=== PATIENT | male | born 1990 | race Caucasian/White ===

== ENCOUNTER 2016-05-11 17:23 | Emergency (ER) | payer OTHER ==
[2016-05-11 17:30] VITALS: RESP 18; TEMP 98.1
--- NOTE | 2016-05-11 18:55 | ED ---
Extremity Problem HPI - General Chief complaint: Extremity Problem,Nontraumatic Stated complaint: leg pain Time Seen by Provider: 05/11/16 18:35 Source: patient, RN notes reviewed Mode of arrival: ambulatory - History of Present Illness Initial comments: Patient is a 26-year-old male presenting to the with chief complaint of right calf pain for approximately 1 day. He states that he does sit frequently and drives often. Patient reports that he googled his symptoms and is concerned that he has a blood clot. He denies any redness to the leg denies any increased swelling to the leg. She states that it is worse with ambulation and he wants to rule out a blood clot. Patient denies any history of blood clots, cancer, blood disorders.Patient denies any recent fever, chills, shortness of breath, chest pain, back pain, abdominal pain, nausea vomiting, numbness or tingling, dysuria or hematuria, constipation or diarrhea, headaches or visual changes, or any other current symptoms - Related Data Home Medications Medication Instructions Recorded Confirmed Ketoconazole [Ketoconazole] 1 applic TOPICAL DAILY PRN 12/13/15 12/13/15 Omeprazole 20 mg PO DAILY PRN 12/13/15 12/13/15 Previous Rx's Medication Instructions Recorded Sulfamethoxazole/Trimethoprim 1 tab PO Q12H 7 Days 12/13/15 [Bactrim DS 800-160 mg] Naproxen 500 mg PO Q12HR #20 tab 05/11/16 Allergies Allergy/AdvReac Type Severity Reaction Status Date / Time bupropion HCl AdvReac Nausea & Verified 05/11/16 17:29 [From Wellbutrin] Vomiting citalopram hydrobromide AdvReac Insomnia Verified 05/11/16 17:29 [From Celexa] sertraline HCl [From Zoloft] AdvReac Insomnia Verified 05/11/16 17:29 Review of Systems ROS Statement: Those systems with pertinent positive or pertinent negative responses have been documented in the HPI. ROS Other: All systems not noted in ROS Statement are negative. Past Medical History Past Medical History: No Reported History Additional Past Medical History / Comment(s): cyst on tailbone x 3 History of Any Multi-Drug Resistant Organisms: None Reported Past Surgical History: No Surgical Hx Reported Additional Past Surgical History / Comment(s): mole removal Past Psychological History: ADD/ADHD, Anxiety, Depression Smoking Status: Current every day smoker Past Alcohol Use History: None Reported Past Drug Use History: None Reported General Exam - General Exam Comments Initial Comments: Is a pleasant 26-year-old male. He does not appear to be in any acute distress. General appearance: alert, in no apparent distress Head exam: Present: atraumatic, normocephalic, normal inspection Eye exam: Present: normal appearance ENT exam: Present: normal exam, mucous membranes moist Neck exam: Present: normal inspection. Absent: tenderness, meningismus, lymphadenopathy Respiratory exam: Present: normal lung sounds bilaterally. Absent: respiratory distress, wheezes, rales, rhonchi, stridor Cardiovascular Exam: Present: regular rate, normal rhythm, normal heart sounds. Absent: systolic murmur, diastolic murmur, rubs, gallop, clicks GI/Abdominal exam: Present: soft, normal bowel sounds. Absent: distended, tenderness, guarding, rebound, rigid Extremities exam: Present: normal inspection, full ROM, normal capillary refill. Absent: tenderness, pedal edema, joint swelling, calf tenderness Right Upper Leg exam: Present: normal inspection, full ROM Knee exam: Present: normal inspection, full ROM Lower Leg exam: Present: normal inspection, full ROM Ankle exam: Present: normal inspection, full ROM Foot/Toe exam: Present: normal inspection, full ROM Neurovascular tendon exam: Present: no vascular compromise Gait: observed and normal Back exam: Present: normal inspection Neurological exam: Present: alert, oriented X3, CN II-XII intact Psychiatric exam: Present: normal affect, normal mood Skin exam: Present: warm, dry, intact, normal color. Absent: rash Course Vital Signs 05/11/16 05/11/16 17:27 19:36 Temperature 98.1 F Pulse Rate 99 89 Respiratory 18 18 Rate Blood Pressure 144/84 150/94 O2 Sat by Pulse 99 96 Oximetry Medical Decision Making - Medical Decision Making Patient is a 26-year-old male with a chief complaint of right calf pain for approximately 1 day. Rate leg lower extremity Doppler ultrasound was obtained and negative for DVT. Patient reports that is tender to palpation over the gastrocnemius. Patient will be diagnosed with a muscle strain at this time. Patient redness occur rash to the leg. I advised patient to take anti- inflammatory medications as prescribed and to follow-up with primary care physician of symptoms into to persist. Return parameters were discussed. - Radiology Data Radiology results: report reviewed Doppler ultrasound of right lower extremities negative for DVT. Disposition Clinical Impression: Leg pain Disposition: HOME SELF-CARE Condition: Good Instructions: Leg Pain (ED) Additional Instructions: Patient instructed to rest, ice, and elevate extremity. Patient instructed to follow-up with her primary care provider if symptoms continue to persist. Return to the [facility] if any alarming signs or symptoms occur. Prescriptions: Naproxen 500 mg PO Q12HR #20 tab Referrals: Joseph Zepeda DO [Primary Care Provider] - 1-2 days Time of Disposition: 19:29
[2016-05-11 19:36] VITALS: BP 150/94; PULSE 89
--- NOTE | 2016-05-11 19:45 | US ---
EXAMINATION TYPE: US venous doppler duplex LE LT DATE OF EXAM: 05/11/2016 6:35 PM COMPARISON: NONE CLINICAL HISTORY: [facility] Patient with Right calf pain x 2 days. Patient denies leg swelling. SIDE PERFORMED: VESSELS IMAGED: Common Femoral Vein Deep Femoral Vein Greater Saphenous Vein * Femoral Vein Popliteal Vein Small Saphenous Vein * Proximal Calf Veins (* superficial vessels) TECHNOLOGIST IMPRESSION: Right Leg: Negative for DVT IMPRESSION: Normal exam. No evidence of deep venous thrombosis in the right leg. Normal augmentation .
== END 2016-05-11 19:36 | disposition home or self-care (01) ==
LOC: EC 17:23
DX: M79.604 Pain in right leg (principal); Z88.8 Allergy status to other drugs, medicaments and biological substances; F17.200 Nicotine dependence, unspecified, uncomplicated
CPT/HCPCS: 99283

== ENCOUNTER 2016-08-07 12:57 | Emergency (ER) | payer OTHER ==
[2016-08-07 13:28] VITALS: BP 135/84; PULSE 103; RESP 20; TEMP 98.2
--- NOTE | 2016-08-07 14:51 | ED ---
Back Pain HPI - General Chief Complaint: Back Pain/Injury Stated Complaint: Lower Back Pain/Injury Time Seen by Provider: 08/07/16 14:25 Source: patient Limitations: no limitations - History of Present Illness Initial Comments: Patient is a 26-year-old male presents emergency room for evaluation of low back pain. Patient states about a week ago he was lifting up a large piece of plywood in threw out his back. Patient states been having pain on the left side of his lower back. Patient denies pain radiating. Patient denies saddle anesthesia. Patient denies fecal or urinary incontinence. Patient denies any numbness or tingling going down his legs. Patient states that he followed-up with his primary care provider after the incident and was sent home with muscle relaxers. Patient states he has been taken muscle relaxers before bed and ibuprofen during the day with relief of symptoms. Patient states that his pain has improved since the initial incident. Patient states he is now able to stand up straight, when he couldn't a week ago. Patient states he thought he should come to the emergency room to be reevaluated. Patient's chest pain, shortness of breath, trouble walking, fevers, chills, headache, dizziness. - Related Data Home Medications Medication Instructions Recorded Confirmed Desvenlafaxine Succinate [Pristiq] 1 tab PO DAILY 08/07/16 08/07/16 Allergies Allergy/AdvReac Type Severity Reaction Status Date / Time bupropion HCl AdvReac Nausea & Verified 08/07/16 13:28 [From Wellbutrin] Vomiting citalopram hydrobromide AdvReac Insomnia Verified 08/07/16 13:28 [From Celexa] sertraline HCl [From Zoloft] AdvReac Insomnia Verified 08/07/16 13:28 Review of Systems ROS Statement: Those systems with pertinent positive or pertinent negative responses have been documented in the HPI. ROS Other: All systems not noted in ROS Statement are negative. Past Medical History Past Medical History: No Reported History Additional Past Medical History / Comment(s): cyst on tailbone x 3 History of Any Multi-Drug Resistant Organisms: None Reported Past Surgical History: No Surgical Hx Reported Additional Past Surgical History / Comment(s): mole removal Past Psychological History: ADD/ADHD, Anxiety, Depression Smoking Status: Current every day smoker Past Alcohol Use History: None Reported Past Drug Use History: None Reported General Exam - General Exam Comments Initial Comments: Sitting in exam room, no acute distress. Limitations: no limitations General appearance: alert, in no apparent distress Head exam: Present: atraumatic, normocephalic, normal inspection Eye exam: Present: normal appearance ENT exam: Present: normal exam Neck exam: Present: normal inspection Respiratory exam: Absent: respiratory distress Extremities exam: Present: normal inspection Back exam: Present: normal inspection, full ROM, muscle spasm (Left lower lumbosacral spine), paraspinal tenderness (Left lumbosacral spine tenderness). Absent: CVA tenderness (R), CVA tenderness (L), vertebral tenderness Neurological exam: Present: alert, oriented X3, CN II-XII intact, normal gait Psychiatric exam: Present: normal affect, normal mood Skin exam: Present: warm, dry, intact, normal color. Absent: rash Course Vital Signs 08/07/16 13:25 Temperature 98.2 F Pulse Rate 103 H Respiratory 20 Rate Blood Pressure 135/84 O2 Sat by Pulse 98 Oximetry Medical Decision Making - Medical Decision Making Patient is a 26-year-old male presents to the emergency room for evaluation of acute low back pain. Patient states the symptoms have improved since they began a week ago. Patient states he came here to be double checked. I did offer patient x-ray and patient declined at this time. Patient declined any pain medications while he was here. Patient states he'll continue taking ibuprofen and muscle relaxers that was prescribed to him by his primary care provider. Advised patient to return for any worsening or concerning symptoms. Patient states he understands everything that was discussed with him. Case discussed with Dr. Pacheco. Disposition Clinical Impression: Acute low back pain Disposition: HOME SELF-CARE Condition: Good Instructions: Acute Low Back Pain (ED) Additional Instructions: Alternate ice and heat. Continue taking ibuprofen or Aleve as needed for pain. Please follow up with primary care provider in 1-2 days. If any new symptom arises or symptoms worsen, return to ER as soon as possible. Referrals: Joseph Zepeda DO [Primary Care Provider] - 1-2 days Time of Disposition: 14:50
== END 2016-08-07 15:02 | disposition home or self-care (01) ==
LOC: EC 12:57
DX: M62.838 Other muscle spasm (principal); F41.9 Anxiety disorder, unspecified; F32.9 Major depressive disorder, single episode, unspecified; F17.200 Nicotine dependence, unspecified, uncomplicated; Z79.899 Other long term (current) drug therapy; Z88.8 Allergy status to other drugs, medicaments and biological substances
CPT/HCPCS: 99283

== ENCOUNTER 2016-09-10 17:57 | Emergency (ER) | payer OTHER ==
[2016-09-10 18:37] VITALS: BP 134/87; PULSE 94; RESP 16; TEMP 98.2
--- NOTE | 2016-09-10 18:46 | ED ---
Extremity Problem HPI - General Chief complaint: Extremity Problem,Nontraumatic Stated complaint: finger pain Time Seen by Provider: 09/10/16 18:28 Source: patient, RN notes reviewed Mode of arrival: ambulatory Limitations: no limitations - History of Present Illness Initial comments: 26-year-old male present emergency department for right hand fourth digit shooting pain. Patient's pain has been intermittent and seems calm ago. Patient states it is worse when he has his arm in a flexed position for long period time. He states his only on the medial aspect of his fourth digit. Patient states is sharp shooting type pain and then it seemed to subside. He states nothing seems to make it feel better at the time when it is present. Patient denies any trauma. 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 Patient denies any chest pain first breath. Patient denies any neck pain or any upper arm pain this time. Patient was adjusted by his chiropractor recently. - Related Data Home Medications Medication Instructions Recorded Confirmed Desvenlafaxine Succinate [Pristiq] 1 tab PO DAILY 08/07/16 09/10/16 Previous Rx's Medication Instructions Recorded methylPREDNISolone [Medrol Dose 4 mg PO DIRECTED #1 pack 09/10/16 Pack] Allergies Allergy/AdvReac Type Severity Reaction Status Date / Time bupropion HCl AdvReac Nausea & Verified 09/10/16 18:37 [From Wellbutrin] Vomiting citalopram hydrobromide AdvReac Insomnia Verified 09/10/16 18:37 [From Celexa] sertraline HCl [From Zoloft] AdvReac Insomnia Verified 09/10/16 18:37 Review of Systems ROS Statement: Those systems with pertinent positive or pertinent negative responses have been documented in the HPI. ROS Other: All systems not noted in ROS Statement are negative. Past Medical History Past Medical History: No Reported History Additional Past Medical History / Comment(s): cyst on tailbone x 3 History of Any Multi-Drug Resistant Organisms: None Reported Past Surgical History: No Surgical Hx Reported Additional Past Surgical History / Comment(s): mole removal, teeth extraction Past Psychological History: ADD/ADHD, Anxiety, Depression Smoking Status: Current every day smoker Past Alcohol Use History: None Reported Past Drug Use History: None Reported General Exam Limitations: no limitations General appearance: alert, in no apparent distress ENT exam: Present: normal exam, normal oropharynx Neck exam: Present: normal inspection. Absent: tenderness, meningismus, lymphadenopathy Respiratory exam: Present: normal lung sounds bilaterally. Absent: respiratory distress, wheezes, rales, rhonchi, stridor Cardiovascular Exam: Present: regular rate, normal rhythm, normal heart sounds. Absent: systolic murmur, diastolic murmur, rubs, gallop, clicks Extremities exam: Present: other (Right hand full-strength neurovascular intact negative Tinel's and Phalen's Refill less than 2 seconds) Neurological exam: Present: reflexes normal. Absent: motor sensory deficit Skin exam: Present: warm, dry, intact, normal color. Absent: rash Course Vital Signs 09/10/16 18:34 Temperature 98.2 F Pulse Rate 94 Respiratory 16 Rate Blood Pressure 134/87 O2 Sat by Pulse 100 Oximetry Medical Decision Making - Medical Decision Making 26year old w presents for intermittent pain to his right hand fourth digit. Patient is exhibiting radicular pain related to his ulnar groove. Patient most likely has cubital syndrome. Patient was started on Medrol Dosepak at this time. Patient will follow up with her still if no improvement. Patient may need EMG. Disposition Clinical Impression: Ulnar nerve entrapment at right ulnar grove, Radicular pain of right upper extremity Disposition: HOME SELF-CARE Condition: Stable Instructions: Cubital Tunnel Syndrome (ED) Additional Instructions: Please return to the Emergency Department if symptoms worsen or any other concerns. Prescriptions: methylPREDNISolone [Medrol Dose Pack] 4 mg PO DIRECTED #1 pack Referrals: Joseph Zepeda DO [Primary Care Provider] - 1-2 days Garo Sterling MD [STAFF PHYSICIAN] - 1-2 days Time of Disposition: 18:46
== END 2016-09-10 19:10 | disposition home or self-care (01) ==
LOC: EC 17:57
DX: G56.21 Lesion of ulnar nerve, right upper limb (principal); F32.9 Major depressive disorder, single episode, unspecified; F17.200 Nicotine dependence, unspecified, uncomplicated; Z79.899 Other long term (current) drug therapy; Z88.8 Allergy status to other drugs, medicaments and biological substances
CPT/HCPCS: 99283

== ENCOUNTER 2016-09-22 12:25 | Emergency (ER) | payer OTHER ==
[2016-09-22 12:28] VITALS: BP 129/86; PULSE 100; RESP 18; TEMP 98.8
[2016-09-22] MEDS ORDERED: ONDANSETRON 4 MG ODT STARTER PACK 2 TAB BTL PO STA (13:08)
--- NOTE | 2016-09-22 13:12 | ED ---
General Adult HPI - General Chief complaint: Recheck/Abnormal Lab/Rx Stated complaint: Weakness Time Seen by Provider: 09/22/16 12:51 Source: patient, RN notes reviewed Mode of arrival: ambulatory Limitations: no limitations - History of Present Illness Initial comments: Patient 26-year-old male who presents emergency room today with chief complaint of symptoms of nausea with diarrhea over the last 3 days. He does admit that his appetites been decreased. He states that at times she's felt dizzy little lightheaded. States he's worried that is possibly dehydrated. States the symptoms have been improved. he denies any other complaints. States he does not have any blood work or IV placed. States he does have anxiety and felt like he does need to come to the emergency room to have an official diagnosis. Patient denies any recent fever, chills, shortness of breath, chest pain, back pain, abdominal pain, nausea or vomiting, numbness or tingling, dysuria or hematuria, constipation, headaches or visual changes, or any other complaints. - Related Data Home Medications Medication Instructions Recorded Confirmed Omeprazole 20 mg PO DAILY 09/22/16 09/22/16 Previous Rx's Medication Instructions Recorded Ondansetron Odt [Zofran ODT] 4 mg PO Q8HR PRN #10 tab 09/22/16 Allergies Allergy/AdvReac Type Severity Reaction Status Date / Time bupropion HCl AdvReac Nausea & Verified 09/10/16 18:37 [From Wellbutrin] Vomiting citalopram hydrobromide AdvReac Insomnia Verified 09/10/16 18:37 [From Celexa] sertraline HCl [From Zoloft] AdvReac Insomnia Verified 09/10/16 18:37 Review of Systems ROS Statement: Those systems with pertinent positive or pertinent negative responses have been documented in the HPI. ROS Other: All systems not noted in ROS Statement are negative. Past Medical History Past Medical History: No Reported History Additional Past Medical History / Comment(s): cyst on tailbone x 3 History of Any Multi-Drug Resistant Organisms: None Reported Past Surgical History: No Surgical Hx Reported Additional Past Surgical History / Comment(s): mole removal, teeth extraction Past Psychological History: ADD/ADHD, Anxiety, Depression Smoking Status: Current every day smoker Past Alcohol Use History: None Reported Past Drug Use History: None Reported General Exam - General Exam Comments Initial Comments: General: The patient is awake and alert, in no distress, and does not appear acutely ill. Eye: Pupils are equal, round and reactive to light, extra-ocular movements are intact. No nystagmus. There is normal conjunctiva bilaterally. No signs of icterus. Ears, nose, mouth and throat: There are moist mucous membranes and no oral lesions. Neck: The neck is supple, there is no tenderness or JVD. Cardiovascular: There is a regular rate and rhythm. No murmur, rub or gallop is appreciated. Respiratory: Lungs are clear to auscultation, respirations are non-labored, breath sounds are equal. No wheezes, stridor, rales, or rhonchi. Gastrointestinal: Soft, non-distended, non-tender abdomen without masses or organomegaly noted. There is no rebound or guarding present. No CVA tenderness. Bowel sounds are unremarkable. Musculoskeletal: Normal ROM, no tenderness. Strength 5/5. Sensation intact. Pulses equal bilaterally 2+. Neurological: A&O x 3. CN II-XII intact, There are no obvious motor or sensory deficits. Coordination appears grossly intact. Speech is normal. Skin: Skin is warm and dry and no rashes or lesions are noted. Psychiatric: Cooperative, appropriate mood & affect, normal judgment. Limitations: no limitations Course Vital Signs 09/22/16 12:25 Temperature 98.8 F Pulse Rate 100 Respiratory 18 Rate Blood Pressure 129/86 O2 Sat by Pulse 100 Oximetry Medical Decision Making - Medical Decision Making patient's declined any testing here in the emergency room. patient will be treated with Zofran. Advised if symptoms increase or worsen to return. Disposition Clinical Impression: Nausea without vomiting, Acute diarrhea Disposition: HOME SELF-CARE Condition: Good Instructions: Acute Diarrhea (ED) Additional Instructions: Please use medication as discussed. Please follow-up with family doctor in the next 2 days of symptoms have not improved. Please return to emergency room if the symptoms increase or worsen or for any other concerns. Prescriptions: Ondansetron Odt [Zofran ODT] 4 mg PO Q8HR PRN #10 tab PRN Reason: Nausea Referrals: Joseph Zepeda DO [Primary Care Provider] - 1-2 days Time of Disposition: 13:11
== END 2016-09-22 13:29 | disposition home or self-care (01) ==
LOC: EC 12:25
DX: R19.7 Diarrhea, unspecified (principal); R11.0 Nausea; R42 Dizziness and giddiness; R53.1 Weakness; F17.200 Nicotine dependence, unspecified, uncomplicated; Z79.899 Other long term (current) drug therapy; Z88.8 Allergy status to other drugs, medicaments and biological substances
CPT/HCPCS: 99284; S0119

== ENCOUNTER 2016-09-23 11:01 | Emergency (ER) | payer OTHER ==
[2016-09-23 11:20] VITALS: BP 151/94; PULSE 98; RESP 16; TEMP 98.2
[2016-09-23] MEDS ORDERED: ONDANSETRON 4 MG ODT STARTER PACK 2 TAB BTL PO STA (11:36)
--- NOTE | 2016-09-23 11:39 | ED ---
General Adult HPI - General Chief complaint: Nausea/Vomiting/Diarrhea Stated complaint: FLU LIKE SYMPTOMS Time Seen by Provider: 09/23/16 11:27 Source: patient, RN notes reviewed Mode of arrival: ambulatory Limitations: no limitations - History of Present Illness Initial comments: Patient is a 26-year-old male who presents emergency room today with chief complaint of symptoms of nausea vomiting diarrhea. Patient was seen here in the emergency room by myself yesterday for the same complaint. Patient was advised to use Zofran was given a starter pack of Zofran to go home with. States he forgot all about this and went home and fell asleep. States he did not take any of Zofran did not get the prescription filled. States he forgot about until I mentioned at this time. Patient does admit that he did have an episode of vomiting. He denies abdominal pain. States not had any diarrhea today. States he is concerned thought symptoms were getting worse. He denies any other complaints or symptoms at this time. Does admit that overall over the last 4-5 days symptoms seem to be somewhat improving. Patient denies any recent fever, chills, shortness of breath, chest pain, back pain, numbness or tingling, dysuria or hematuria, constipation, headaches or visual changes, or any other complaints. - Related Data Home Medications Medication Instructions Recorded Confirmed Omeprazole 20 mg PO DAILY 09/22/16 09/22/16 Allergies Allergy/AdvReac Type Severity Reaction Status Date / Time bupropion HCl AdvReac Nausea & Verified 09/23/16 11:16 [From Wellbutrin] Vomiting citalopram hydrobromide AdvReac Insomnia Verified 09/23/16 11:16 [From Celexa] sertraline HCl [From Zoloft] AdvReac Insomnia Verified 09/23/16 11:16 Review of Systems ROS Statement: Those systems with pertinent positive or pertinent negative responses have been documented in the HPI. ROS Other: All systems not noted in ROS Statement are negative. Past Medical History Past Medical History: No Reported History Additional Past Medical History / Comment(s): cyst on tailbone x 3 History of Any Multi-Drug Resistant Organisms: None Reported Past Surgical History: No Surgical Hx Reported Additional Past Surgical History / Comment(s): mole removal, teeth extraction Past Psychological History: ADD/ADHD, Anxiety, Depression Smoking Status: Current every day smoker Past Alcohol Use History: None Reported Past Drug Use History: None Reported General Exam - General Exam Comments Initial Comments: General: The patient is awake and alert, in no distress, and does not appear acutely ill. Eye: Pupils are equal, round and reactive to light, extra-ocular movements are intact. No nystagmus. There is normal conjunctiva bilaterally. No signs of icterus. Ears, nose, mouth and throat: There are moist mucous membranes and no oral lesions. Neck: The neck is supple, there is no tenderness or JVD. Cardiovascular: There is a regular rate and rhythm. No murmur, rub or gallop is appreciated. Respiratory: Lungs are clear to auscultation, respirations are non-labored, breath sounds are equal. No wheezes, stridor, rales, or rhonchi. Gastrointestinal: Soft, non-distended, non-tender abdomen without masses or organomegaly noted. There is no rebound or guarding present. No CVA tenderness. Bowel sounds are unremarkable. Musculoskeletal: Normal ROM, no tenderness. Strength 5/5. Sensation intact. Pulses equal bilaterally 2+. Neurological: A&O x 3. CN II-XII intact, There are no obvious motor or sensory deficits. Coordination appears grossly intact. Speech is normal. Skin: Skin is warm and dry and no rashes or lesions are noted. Psychiatric: Cooperative, appropriate mood & affect, normal judgment. Limitations: no limitations Course Vital Signs 09/23/16 11:17 Temperature 98.2 F Pulse Rate 98 Respiratory 16 Rate Blood Pressure 151/94 O2 Sat by Pulse 97 Oximetry Medical Decision Making - Medical Decision Making Discussed with patient about the importance of taking the nausea medication for symptoms. At this times no signs of dehydration his vitals are stable. There is no abdominal pain his abdomen is soft nontender. Patient will be given a note or starter pack of Zofran to begin using at this time. Advised to use prescription that was given to him yesterday. Advised return if there is any abdominal pain or increase or worsening of symptoms. He states understanding and is in agreement. Disposition Clinical Impression: Nausea vomiting and diarrhea Disposition: HOME SELF-CARE Condition: Good Instructions: Gastroenteritis (ED) Additional Instructions: Please use medication as discussed. Please follow-up with family doctor in the next 2 days of symptoms have not improved. Please return to emergency room if the symptoms increase or worsen or for any other concerns. Referrals: Joseph Zepeda DO [Primary Care Provider] - 1-2 days Time of Disposition: 11:38
== END 2016-09-23 11:46 | disposition home or self-care (01) ==
LOC: EC 11:01
DX: R11.2 Nausea with vomiting, unspecified (principal); R19.7 Diarrhea, unspecified; F17.200 Nicotine dependence, unspecified, uncomplicated; Z79.899 Other long term (current) drug therapy; Z88.8 Allergy status to other drugs, medicaments and biological substances
CPT/HCPCS: 99283; S0119

== ENCOUNTER → 2016-10-01 | Outpatient (CLI) | payer OTHER ==
--- NOTE | 2016-10-01 11:20 | US ---
EXAMINATION TYPE: US abdomen complete DATE OF EXAM: 10/01/2016 COMPARISON: CT abdomen pelvis January 25, 2012. CLINICAL HISTORY: R11.2 NAUSEA WITH VOMITING. EXAM MEASUREMENTS: Liver Length: 14.0 cm Gallbladder Wall: 0.2 cm CBD: 0.5 cm Spleen: 13.9 cm Right Kidney: 12.0 x 4.4 x 5.0 cm Left Kidney: 12.0 x 5.2 x 5.4 cm Pancreas: portions of body and tail obscured by overlying bowel gas, portions visualized wnl Liver: wnl Gallbladder: wnl Evidence for sonographic Sterling's sign: No CBD: wnl Spleen: enlarged Right Kidney: wnl Left Kidney: wnl Upper IVC: wnl Abd Aorta: portions visualized wnl, partially obscured by bowel gas The liver is homogenous. The intrahepatic portion of the IVC and proximal abdominal aorta are within normal limits. There is no evidence of cholelithiasis. Common bile duct is unremarkable. The visu alized portions of the pancreas are homogenous. The spleen is slightly enlarged without suspicious f ocal intrasplenic lesion seen. No worrisome solid or cystic masses seen on saved images of both [facility]. IMPRESSION: Spleen is mildly enlarged and more prominent than seen on CT from 2012. This may warrant further clinical workup. No acute findings are evident.
== END | disposition home or self-care (01) ==
LOC: RADUSWWP 10:18
PROVIDERS: ATTEND Family Medicine
DX: R16.1 Splenomegaly, not elsewhere classified (principal); R11.2 Nausea with vomiting, unspecified
CPT/HCPCS: 76700

== ENCOUNTER 2016-10-11 17:48 | Emergency (ER) | payer OTHER ==
--- NOTE | 2016-10-11 18:53 | ED ---
Lower Extremity Injury HPI - General Chief Complaint: Extremity Injury, Lower Stated Complaint: LEFT LEG PAIN Time Seen by Provider: 10/11/16 18:11 Source: patient, RN notes reviewed Mode of arrival: ambulatory - History of Present Illness Initial Comments: Patient is a 26-year-old male presents to the emergency room for evaluation of left upper leg. Patient states he began experiencing muscle tightness in his left upper leg starting on Saturday. Patient states the pain comes in waves. Patient states he notices when he is active, his left upper thigh begins cramping. Patient denies any specific injury to his leg. Patient denies redness or swelling at the area. Patient is afraid that he has a blood clot. Patient denies history of DVTs. Patient does admit to smoking daily. Patient denies chest pain or shortness of breath. Patient states he has anxiety and wants to make sure it is not a blood clot. Patient denies any numbness or tingling in his toes. Patient denies any current pain right now. Patient denies any low back pain for sciatic pain. - Related Data Home Medications Medication Instructions Recorded Confirmed Omeprazole 20 mg PO DAILY 09/22/16 09/22/16 Previous Rx's Medication Instructions Recorded Orphenadrine [Norflex] 100 mg PO Q12H PRN #12 tablet.er 10/11/16 Allergies Allergy/AdvReac Type Severity Reaction Status Date / Time bupropion HCl AdvReac Nausea & Verified 10/11/16 18:08 [From Wellbutrin] Vomiting citalopram hydrobromide AdvReac Insomnia Verified 10/11/16 18:08 [From Celexa] sertraline HCl [From Zoloft] AdvReac Insomnia Verified 10/11/16 18:08 Review of Systems ROS Statement: Those systems with pertinent positive or pertinent negative responses have been documented in the HPI. ROS Other: All systems not noted in ROS Statement are negative. Past Medical History Past Medical History: No Reported History Additional Past Medical History / Comment(s): cyst on tailbone x 3 History of Any Multi-Drug Resistant Organisms: None Reported Past Surgical History: No Surgical Hx Reported Additional Past Surgical History / Comment(s): mole removal, teeth extraction Past Psychological History: ADD/ADHD, Anxiety, Depression Smoking Status: Current every day smoker Past Alcohol Use History: None Reported Past Drug Use History: None Reported General Exam - General Exam Comments Initial Comments: Sitting in exam room, no acute distress. Limitations: no limitations General appearance: alert, in no apparent distress Head exam: Present: atraumatic, normocephalic, normal inspection Eye exam: Present: normal appearance ENT exam: Present: normal exam Neck exam: Present: normal inspection Respiratory exam: Present: normal lung sounds bilaterally. Absent: respiratory distress Cardiovascular Exam: Present: regular rate, normal rhythm, normal heart sounds Left Hip exam: Present: normal inspection, full ROM. Absent: tenderness Upper Leg exam: Present: normal inspection, full ROM. Absent: tenderness, erythema Knee exam: Present: normal inspection, full ROM. Absent: tenderness Lower Leg exam: Present: normal inspection, full ROM. Absent: tenderness, palpable cord, Homans' sign Neurovascular tendon exam: Present: no vascular compromise. Absent: pulse deficit (2+ dorsal pedal and posterior tibial pulses), abnormal cap refill ( Capillary refill less than 2 seconds) Back exam: Present: normal inspection Neurological exam: Present: alert, oriented X3, CN II-XII intact Psychiatric exam: Present: normal affect, normal mood Skin exam: Present: warm, dry, intact, normal color. Absent: rash Course Vital Signs 10/11/16 10/11/16 18:06 19:39 Temperature 96.7 F L 98.5 F Pulse Rate 108 H 88 Respiratory 20 18 Rate Blood Pressure 124/83 133/74 O2 Sat by Pulse 99 99 Oximetry Medical Decision Making - Medical Decision Making Patient is a 26-year-old male presents emergency room for evaluation of left upper leg pain. No redness or heat noted at the area of pain. Patient denies any pain at the moment. Patient requesting ultrasound to rule out DVT. Venous Doppler ultrasound negative for DVT. Patient given muscle relaxers and advised to take ibuprofen. Advised patient to follow-up with primary care provider if symptoms are not improving. Patient states he understands everything that was discussed with him. Return parameters discussed. - Radiology Data Radiology results: report reviewed, image reviewed Disposition Clinical Impression: Quadriceps muscle strain Disposition: HOME SELF-CARE Condition: Good Instructions: Muscle Strain (ED) Additional Instructions: Take ibuprofen as needed for pain. Take Norflex as needed for severe pain. Warm moist heat. Please follow up with primary care provider in 1-2 days. If any new symptom arises or symptoms worsen, return to ER as soon as possible. Prescriptions: Orphenadrine [Norflex] 100 mg PO Q12H PRN #12 tablet.er PRN Reason: Pain Referrals: Joseph Zepeda DO [Primary Care Provider] - 1-2 days Time of Disposition: 20:33
[2016-10-11 19:40] VITALS: BP 133/74; PULSE 88; RESP 18; TEMP 98.5
--- NOTE | 2016-10-11 20:29 | US ---
EXAMINATION TYPE: US venous doppler duplex LE LT DATE OF EXAM: 10/11/2016 6:54 PM COMPARISON: NONE CLINICAL HISTORY: Pain in left leg. SIDE PERFORMED: Left TECHNIQUE: The lower extremity deep venous system is examined utilizing real time linear array sonog bernie with graded compression, doppler sonography and color-flow sonography. VESSELS IMAGED: External Iliac Vein (EIV) Common Femoral Vein Deep Femoral Vein Greater Saphenous Vein * Femoral Vein Popliteal Vein Small Saphenous Vein * Proximal Calf Veins (* superficial vessels) Left Leg: Negative for DVT IMPRESSION: No evident deep venous thrombosis within the left lower extremity from the groin to th e level of the knee.
== END 2016-10-11 20:38 | disposition home or self-care (01) ==
LOC: EC 17:48
DX: S76.112A Strain of left quadriceps muscle, fascia and tendon, initial encounter (principal); F17.200 Nicotine dependence, unspecified, uncomplicated; Z79.899 Other long term (current) drug therapy; Z88.8 Allergy status to other drugs, medicaments and biological substances; X58.XXXA Exposure to other specified factors, initial encounter; Y93.67 Activity, basketball
CPT/HCPCS: 99283

== ENCOUNTER 2017-03-19 18:10 | Emergency (ER) | payer OTHER ==
[2017-03-19 18:15] VITALS: BP 135/79; PULSE 98; RESP 18; TEMP 98.3
--- NOTE | 2017-03-19 18:50 | ED ---
Abdominal Pain HPI - General Chief Complaint: Abdominal Pain Stated Complaint: Abd Pain Time Seen by Provider: 03/19/17 18:30 Source: patient Mode of arrival: ambulatory Limitations: no limitations - History of Present Illness Initial Comments: 26-year-old male patient presents to the emergency department today for complaints of right upper quadrant abdominal pain. Patient states he has had this pain on and off for the last 2 weeks. He states that the pain seems to be just below his rib cage and radiates around to his flank. He describes the pain as a sharp aching pain. States that it worsens with twisting movements and when he lifts things at work. He is currently pain-free. He states he has had this pain in the past and has had ultrasound and evaluation by his primary care physician. States that they were unable to find a cause for his pain. He denies any associated nausea, vomiting, constipation, diarrhea, fever, chills, hematuria, dysuria, urinary frequency, or urinary urgency. Patient denies any recent rash, fever, chills, shortness breath, chest pain, back pain, numbness, tingling, dizziness, weakness, headache, visual changes, or any other complaints. - Related Data Home Medications Medication Instructions Recorded Confirmed Omeprazole 20 mg PO DAILY 09/22/16 03/19/17 LORazepam [Ativan] 1 mg PO DAILY PRN 03/19/17 03/19/17 busPIRone HCl [Buspar] 10 mg PO DAILY 03/19/17 03/19/17 Previous Rx's Medication Instructions Recorded Cyclobenzaprine [Flexeril] 10 mg PO TID #15 tab 03/19/17 Allergies Allergy/AdvReac Type Severity Reaction Status Date / Time bupropion HCl AdvReac Nausea & Verified 03/19/17 19:05 [From Wellbutrin] Vomiting citalopram hydrobromide AdvReac Insomnia Verified 03/19/17 19:05 [From Celexa] sertraline HCl [From Zoloft] AdvReac Insomnia Verified 03/19/17 19:05 Review of Systems ROS Statement: Those systems with pertinent positive or pertinent negative responses have been documented in the HPI. ROS Other: All systems not noted in ROS Statement are negative. Past Medical History Past Medical History: No Reported History Additional Past Medical History / Comment(s): cyst on tailbone x 3 History of Any Multi-Drug Resistant Organisms: None Reported Past Surgical History: No Surgical Hx Reported Additional Past Surgical History / Comment(s): mole removal, teeth extraction Past Psychological History: ADD/ADHD, Anxiety, Depression Smoking Status: Current every day smoker Past Alcohol Use History: None Reported Past Drug Use History: None Reported General Exam Limitations: no limitations General appearance: alert, in no apparent distress, other (This is a well- developed, well-nourished adult male patient in no acute distress. Vital signs upon presentation were temperature 98.3F, pulse 98, respirations 18, blood pressure 135/79, pulse ox 98% on room air.) Eye exam: Present: normal appearance, PERRL, EOMI. Absent: scleral icterus, conjunctival injection, periorbital swelling Respiratory exam: Present: normal lung sounds bilaterally. Absent: respiratory distress, wheezes, rales, rhonchi, stridor Cardiovascular Exam: Present: regular rate, normal rhythm, normal heart sounds. Absent: systolic murmur, diastolic murmur, rubs, gallop, clicks GI/Abdominal exam: Present: soft, normal bowel sounds. Absent: distended, tenderness, guarding, rebound, rigid, organomegaly, hernia Back exam: Present: normal inspection. Absent: CVA tenderness (R), CVA tenderness (L) Neurological exam: Present: alert, oriented X3, CN II-XII intact Psychiatric exam: Present: normal affect, normal mood Skin exam: Present: warm, dry, intact, normal color. Absent: rash Course Vital Signs 03/19/17 18:12 Temperature 98.3 F Pulse Rate 98 Respiratory 18 Rate Blood Pressure 135/79 O2 Sat by Pulse 98 Oximetry Medical Decision Making - Medical Decision Making 26 year-old male patient presented to the emergency department today for evaluation of right upper quadrant abdominal pain. Physical examination is unremarkable. There is no abdominal tenderness. Vital signs are stable with no fever. Patient is denying any current symptoms. States that they are intermittent. Did review an ultrasound the patient had when he experienced similar symptoms in September, this was negative for any acute process. Patient declines blood work. Patient did report an increase in the pain with twisting type movements. Patient states that he has been lifting heavier loads at work than usual with the fall season. I did inform him that this could possibly be related to a muscle strain. At this point patient seems physically stable to go home. We will try him on Flexeril and he is instructed to take ibuprofen for pain control. He is instructed to follow-up with his primary care physician for further evaluation. He is instructed to return here immediate for any new, worsening, or concerning symptoms. He verbalizes understanding and agrees with this plan. Disposition Clinical Impression: RUQ abdominal pain Disposition: HOME SELF-CARE Condition: Good Instructions: Muscle Strain (ED), Abdominal Pain (ED) Additional Instructions: Apply warm moist heat to the area. Rest as much as possible. Take ibuprofen for pain control. Return here immediately for any new, worsening, or concerning symptoms. Keep appointment that she has scheduled with your primary care provider on April 11. Prescriptions: Cyclobenzaprine [Flexeril] 10 mg PO TID #15 tab Referrals: Joseph Zepeda DO [Primary Care Provider] - 1-2 days Time of Disposition: 18:59
== END 2017-03-19 19:14 | disposition home or self-care (01) ==
LOC: EC 18:10
DX: R10.11 Right upper quadrant pain (principal); F41.9 Anxiety disorder, unspecified; F32.9 Major depressive disorder, single episode, unspecified; F17.200 Nicotine dependence, unspecified, uncomplicated; Z88.8 Allergy status to other drugs, medicaments and biological substances; Z79.899 Other long term (current) drug therapy
CPT/HCPCS: 99283

== ENCOUNTER 2022-05-18 03:26 | Emergency (ER) | payer BC, OTHER ==
[2022-05-18 03:34] VITALS: BP 127/90; PULSE 81; RESP 18
[2022-05-18 03:47] VITALS: TEMP 98.1
[2022-05-18] MEDS ORDERED: IBUPROFEN 800 MG TAB PO STA (03:48)
--- NOTE | 2022-05-18 04:22 | ED ---
General Adult HPI - General Chief complaint: Abdominal Pain Stated complaint: Abd Pain Time Seen by Provider: 05/18/22 03:38 Source: patient, RN notes reviewed, old records reviewed Mode of arrival: ambulatory Limitations: no limitations - History of Present Illness Initial comments: Patient is a 32-year-old male with no significant past medical history presents emergency Department complaining of sudden onset right-sided pain. States he was stretching this morning we will get having pain that radiated from his lower back in a belt like distribution down towards his pelvis and he states "to the tip of my penis." States it is only on the right side. It was sudden onset while he was stretching. Denies any pain on palpation. Denies any back pain. Denies any nausea, vomiting, diarrhea. Denies any fevers, chest pain, shortness of breath. Denies any dysuria, hematuria, urethral discharge. Is uncertain what is causing his current pain. States he is somewhat concerned for possible appendicitis, however does not want any blood work or IV placed. States he believes it is likely secondary to a pulled muscle or nerve. Wanted to be evaluated. Presents for further evaluation at this time. Denies saddle anesthesia, lower extremity weakness, urinary or bowel incontinence. - Related Data Home Medications Medication Instructions Recorded Confirmed Omeprazole 20 mg PO DAILY 09/22/16 03/19/17 LORazepam [Ativan] 1 mg PO DAILY PRN 03/19/17 03/19/17 busPIRone HCl [Buspar] 10 mg PO DAILY 03/19/17 03/19/17 Previous Rx's Medication Instructions Recorded Cyclobenzaprine [Flexeril] 10 mg PO TID #15 tab 03/19/17 HYDROcodone/APAP 5-325MG [[place] 1 tab PO Q6HR PRN 3 Days #12 tab 05/18/22 5-325] Ondansetron Odt [Zofran Odt] 4 mg PO Q8HR PRN 3 Days #9 tab 05/18/22 Tamsulosin HCl [Flomax] 0.4 mg PO DAILY 7 Days #7 capsule 05/18/22 Allergies Allergy/AdvReac Type Severity Reaction Status Date / Time bupropion HCl AdvReac Nausea & Verified 05/18/22 03:31 [From Wellbutrin] Vomiting citalopram hydrobromide AdvReac Insomnia Verified 05/18/22 03:31 [From Celexa] sertraline HCl [From Zoloft] AdvReac Insomnia Verified 05/18/22 03:31 Review of Systems ROS Statement: Those systems with pertinent positive or pertinent negative responses have been documented in the HPI. Review of Systems: CONST: Denies fever EYES: Denies blurry vision ENT: Denies nasal congestion C/V: Denies Chest pain RESP: Denies shortness of breath GI: Endorses right-sided abdominal pain. : Denies dysuria SKIN: Denies rash. MSK: Denies joint pain. NEURO: Denies headache ROS Other: All systems not noted in ROS Statement are negative. Past Medical History Past Medical History: No Reported History Additional Past Medical History / Comment(s): cyst on tailbone x 3 History of Any Multi-Drug Resistant Organisms: None Reported Past Surgical History: No Surgical Hx Reported Additional Past Surgical History / Comment(s): mole removal, teeth extraction Past Psychological History: ADD/ADHD, Anxiety, Depression Smoking Status: Current every day smoker Past Alcohol Use History: None Reported Past Drug Use History: None Reported General Exam - General Exam Comments Initial Comments: General: Appears in no acute distress. HEAD: Normal with no signs of head trauma. EYES: PERRLA, EOMI, conjunctiva normal, no discharge. ENT: Hearing grossly intact, normal oropharynx. RESPIRATORY: Clear breath sounds bilaterally. No wheezes, rales, or rhonchi. C/V: Regular rate and rhythm. S1 and S2 auscultated, no edema, peripheral pulses 2+ and intact throughout ABD: Abd is soft, nontender, nondistended. No palpable pain anywhere. No guarding. No rebound tenderness. No peritoneal signs. : No scrotal tenderness. No urethral discharge. No rashes. Normal exam. EXT: Normal range of motion, no obvious deformity. No spinal tenderness palpation in the cervical, thoracic, lumbar spines. SKIN: No rashes or lesions observed on exposed skin. NEURO: Alert and oriented 4. No focal deficits. Limitations: no limitations Course Vital Signs 05/18/22 03:32 Temperature 98.1 F Pulse Rate 81 Respiratory 18 Rate Blood Pressure 127/90 O2 Sat by Pulse 98 Oximetry Medical Decision Making - Medical Decision Making Based on the patient's presentation and physical exam, I'm uncertain what is causing his current pain. Cannot rule out intra-abdominal cause versus possible musculoskeletal injury such as a muscle strain or pinched nerve. Exam is completely normal with no palpable pain. He is in no distress. He does not want an IV placed. I did discuss with him obtaining labs as well as a CT with contrast which she declined. Therefore we will avoid IV draws, and obtain a urinalysis as well as a CT of the lumbar spine and CT of the abdomen and pelvis without contrast. Patient will be administered Motrin for pain control. Patient was in agreement this plan. Vital signs within normal limits. Patient's urinalysis shows a large amount of RBCs and blood. No evidence of infection. Patient's CT abdomen and pelvis reveals what appears to be mild hydronephrosis on the right with some small calculi in the right ureter. CT lumbar spine shows disc herniation L5-S1. No concern for cauda equina syndrome. No red flag symptoms. On reevaluation, after the patient. I believe it is safe for him to be discharged home at this time with follow-up with urology. We also discussed his disc herniation. Has no symptoms of cauda equina syndrome at this time. Both are potential causes for his current plain. Pain is currently under control. He was in agreement this plan. He will be given a prescription for [place], as well as Flomax and ODT Zofran. Patient is discharged home at this time strict return precautions. He was in agreement this plan. I will provide the patient with a prescription for [place], Flomax, ODT Zofran. I instructed the patient to follow up with their PCP in the next 1-3 days. I provided contact information for follow up with urology. I explained that the patient should return to the emergency department if they experience any worsening symptoms. Strict return precautions were discussed with the patient. The patient expressed understanding of these instructions. I answered all questions that the patient had. The patient was discharged home in good condition with their prescriptions and follow up information. Was pt. sent in by a medical professional or institution ([facility], CLINICAL NURSE SPECIALIST, urgent care, hospital, or retirement...) When possible be specific @ -No Did you speak to anyone other than the patient for history (EMS, parent, family, police, friend...)? What history was obtained from this source @ -No Did you review nursing and triage notes (agree or disagree)? Why? @ -I reviewed and agree with nursing and triage notes Were old charts reviewed (outside hosp., previous admission, EMS record, old EKG, old radiological studies, urgent care reports/EKG's, retirement records)? Report findings @ -No old charts were reviewed Differential Diagnosis (chest pain, altered mental status, abdominal pain women, abdominal pain men, vaginal bleeding, weakness, fever, dyspnea, syncope, headache, dizziness, GI bleed, back pain, seizure, CVA, palpatations, mental health)? @ -Differential Abdominal Pain Men: Appendicitis, cholecystitis, diverticulosis, ischemic bowel, pancreatitis, hepatitis, UTI, gastroenteritis, AAA, incarcerated hernia, bowel obstruction, constipation, inflammatory bowel, hepatitis, peptic ulcer disease, splenic infarction, perforated viscus, testicular torsion, this is not meant to be an all-inclusive list EKG interpreted by me (3pts min.). @ -None done X-rays interpreted by me (1pt min.). @ -None done CT interpreted by me (1pt min.). @ -CT imaging of the abdomen and pelvis reveals small right-sided calculi in the right ureter with mild hydronephrosis. CT lumbar spine shows a disc herniation at L5-S1. U/S interpreted by me (1pt. min.). @ -None done What testing was considered but not performed or refused? (CT, X-rays, U/S, labs)? Why? @ -None What meds were considered but not given or refused? Why? @ -None Did you discuss the management of the patient with other professionals (professionals i.e. , PA, CLINICAL NURSE SPECIALIST, lab, RT, psych nurse, outreach and education social worker, treasury representative, teacher, intelligence support officer, upper caser)? Give summary @ -No Was smoking cessation discussed for >3mins.? @ -No Was critical care preformed (if so, how long)? @ -No Were there social determinants of health that impacted care today? How? (Homelessness, low income, unemployed, alcoholism, drug addiction, transportation, low edu. Level, literacy, decrease access to med. care, prison, rehab)? @ -No Was there de-escalation of care discussed even if they declined (Discuss DNR or withdrawal of care, Hospice)? DNR status @ -No What co-morbidities impacted this encounter? (DM, HTN, Smoking, COPD, CAD, Cancer, CVA, ARF, Chemo, Hep., AIDS, mental health diagnosis, sleep apnea, morbid obesity)? @ -None Was patient admitted / discharged? Hospital course, mention meds given and route, prescriptions, significant lab abnormalities, going to OR and other pertinent info. @ -Discharged home. See above for ED course. Undiagnosed new problem with uncertain prognosis? @ -No Drug Therapy requiring intensive monitoring for toxicity (Heparin, Nitro, Insulin, Cardizem)? @ -No Were any procedures done? @ -No Diagnosis/symptom? @ -Kidney stone Acute, or Chronic, or Acute on Chronic? @ -Acute Uncomplicated (without systemic symptoms) or Complicated (systemic symptoms)? @ -Uncomplicated Side effects of treatment? @ -No Exacerbation, Progression, or Severe Exacerbation? @ -No Poses a threat to life or bodily function? How? (Chest pain, [place], [place], pneumonia, PE, COPD, DKA, ARF, appy, cholecystitis, CVA, Diverticulitis, Homicidal, Suicidal, threat to staff... and all critical care pts) @ -No Diagnosis/symptom? @ -Lumbar disc herniation Acute, or Chronic, or Acute on Chronic? @ -Acute Uncomplicated (without systemic symptoms) or Complicated (systemic symptoms)? @ -Uncomplicated Side effects of treatment? @ -none Exacerbation, Progression, or Severe Exacerbation] @ -no Poses a threat to life or bodily function? @ -no - Lab Data Lab Results 05/18/22 Range/Units 04:17 Urine Color Yellow Urine Appearance Clear (Clear) Urine pH 8.0 (5.0-8.0) Ur Specific [place] 1.026 (1.001-1.035) Urine Protein 1+ H (Negative) Urine Glucose (UA) Negative (Negative) Urine Ketones Negative (Negative) Urine Blood Large H (Negative) Urine Nitrite Negative (Negative) Urine Bilirubin Negative (Negative) Urine Urobilinogen 3.0 (<2.0) mg/dL Ur Leukocyte Esterase Negative (Negative) Urine RBC 122 H (0-5) /hpf Urine WBC 1 (0-5) /hpf Ur Squamous Epith Cells 1 (0-4) /hpf Urine Mucus Few H (None) /hpf Urine Yeast (Budding) Rare H (None) /hpf Disposition Clinical Impression: Kidney stone on right side, Disc herniation Disposition: HOME SELF-CARE Condition: Good Instructions (If sedation given, give patient instructions): Kidney Stones (ED), Lumbar Disc Herniation (ED) Prescriptions: Tamsulosin HCl [Flomax] 0.4 mg PO DAILY 7 Days #7 capsule HYDROcodone/APAP 5-325MG [[place] 5-325] 1 tab PO Q6HR PRN 3 Days #12 tab PRN Reason: Pain Ondansetron Odt [Zofran Odt] 4 mg PO Q8HR PRN 3 Days #9 tab PRN Reason: Nausea Is patient prescribed a controlled substance at d/c from ED?: No Referrals: Joseph Zepeda DO [Primary Care Provider] - 1-2 days Wali Jackson MD [STAFF PHYSICIAN] - 1-2 days Time of Disposition: 05:00
--- NOTE | 2022-05-18 04:32 | CT ---
EXAMINATION TYPE: CT abdomen pelvis wo con DATE OF EXAM: 05/18/2022 COMPARISON: 01/05/2012 HISTORY: rt flank/Lower quadrant pain into groin CT DLP: 907.2 mGycm Automated exposure control for dose reduction was used. Images obtained from the diaphragm to the floor the pelvis with no contrast. Lung bases are clear. No pleural effusion. Heart size is normal. No pericardial effusion. Small hiata l hernia. Stomach is intact. Liver and spleen are intact. The bile ducts are not dilated. Gallbladder appears normal. There is no pancreatic mass. There is no adrenal mass. Kidneys have normal size. There is right-sided hydronephrosis. There is mil d ectasia of the right ureter. There is likely 3 mm low density calculus in the distal right ureter s een on the coronal images.. The bladder distends smoothly. No inguinal hernia. No free fluid in the p drea. Left kidney shows no sign of obstruction. No retroperitoneal adenopathy. There is no mesenteric edema no ascites or free air. No sign of a bowel obstruction. Appendix is post erior and appears normal. The lumbar vertebra appear intact. No compression fracture. Bony pelvis is intact. The hip joints are intact. IMPRESSION: Mild right-sided hydronephrosis and hydroureter. There is likely low-density small calculus in the di stal right ureter. Obstruction appears new compared to the old exam. Normal appendix.
[2022-05-18 04:54] LABS: Appearance,Urine Clear (Clear); Bilirubin,Urine Negative (Negative); Blood,Urine Large (Negative); Budding Yeast,Urine Rare /hpf; Color,Urine Yellow; Glucose,Urine (UA) Negative (Negative); Ketones,Urine Negative (Negative); Leukocyte Esterase,Urine Negative (Negative); Mucus,Urine Few /hpf; Nitrite,Urine Negative (Negative); Protein,Urine 1+ (Negative); RBC,Urine 122 /hpf (0-5); Specific Gravity,Urine 1.026 (1.001-1.035); Squamous Epithelial Cell,Urine 1 /hpf (0-4); WBC,Urine 1 /hpf (0-5)
[2022-05-18] MEDS ORDERED: HYDROcodone/APAP 5-325MG 1 EACH TAB PO STA (04:54)
[2022-05-18] MEDS ORDERED: ONDANSETRON ODT 4 MG TAB PO STA (04:54)
[2022-05-18] MEDS ORDERED: TAMSULOSIN 0.4 MG CAP.ER.24H PO STA (04:56)
--- NOTE | 2022-05-18 05:04 | CT ---
EXAMINATION TYPE: CT lumbar spine wo con DATE OF EXAM: 05/18/2022 COMPARISON: 01/05/2012 HISTORY: rt flank/Lower quadrant pain into groin CT DLP: 907.2 mGycm Automated exposure control for dose reduction was used. Images obtained from T12 to S1 vertebra with no contrast. Lumbar vertebrae have normal spacing and alignment. Posterior elements are intact. Facet joints are i ntact. There is no lumbar paraspinal mass. No compression fracture. Sacroiliac joints are intact. No spinal stenosis. There is a mild posterior L5-S1 central disc bulging and herniation. IMPRESSION: Posterior central mild disc herniation at L5-S1. No spinal stenosis. No fracture.
== END 2022-05-18 05:26 | disposition home or self-care (01) ==
LOC: EC 03:26
DX: K46.9 Unspecified abdominal hernia without obstruction or gangrene (principal); N20.0 Calculus of kidney; F41.9 Anxiety disorder, unspecified; F32.A Depression, unspecified; F17.200 Nicotine dependence, unspecified, uncomplicated; Z88.8 Allergy status to other drugs, medicaments and biological substances
CPT/HCPCS: 72131; 74176; 81001; 99284